=== PATIENT | male | born 2000 | race Two or more races ===

== ENCOUNTER 2020-06-27 08:18 | Emergency (ER) | payer OTHER ==
[~2020-06-27] VITALS: Ht 175.3 cm; Wt 78.3 kg
[2020-06-27 08:47] LABS: BASO % 0 % (0-3); EOS # 0.1 x10^3/uL (0.0-0.7); EOS % 2 % (0-3); HEMOGLOBIN 14.7 g/dL (13.0-17.5); LYMPH # 3.7 x10^3/uL (1.0-4.8); LYMPH % 48 % (24-48); MEAN CORPUSCULAR HEMOGLOBIN 30 pg (25-35); MEAN CORPUSCULAR HGB CONC 34 g/dL (31-37); MEAN CORPUSCULAR VOLUME 87 fL (79-100); MONO # 0.4 x10^3/uL (0.0-1.1); MONO % 5 % (0-9); NEUT # 3.5 x10^3uL (1.8-7.7); NEUT % 45 % (31-73); PLATELET COUNT 237 x10^3/uL (140-400); RED BLOOD COUNT 4.93 x10^6/uL (4.30-5.70); RED CELL DISTRIBUTION WIDTH 13.5 % (11.5-14.5); WHITE BLOOD COUNT 7.8 x10^3/uL (4.0-11.0)
[2020-06-27] MEDS: IV NORMAL SALINE 1,000ML 1,000 ML IV ONE (08:50)
[2020-06-27] MEDS: ONDANSETRON PF 4 MG/2 ML VIAL. IVP ONE (08:51)
--- NOTE | 2020-06-27 08:51 | PHYS DOC ---
Past History Past Medical History: Other Additional Past Medical Histor: polysubstance use Past Surgical History: No Surgical History Additional Smoking Information: 1/2 pack daily Alcohol Use: Heavy Additional Alcohol Information: 1 pint daily Social History Narrative: LSD, mushrooms General Adult EDM: Chief Complaint: DRUG ABUSE HPI: HPI: 19-year-old male presents after drug use. The patient states that he took several different drugs last night and now does not feel well. He wants to make sure he is not dying. He took Percocet, mushrooms, acid, and marijuana.... At least. He has no specific complaints. Denies fever or chills. Review of Systems: Review of Systems: Constitutional: Denies fever or chills Eyes: Denies change in visual acuity HENT: Denies nasal congestion or sore throat Respiratory: Denies cough or shortness of breath Cardiovascular: Denies chest pain or edema GI: Nausea. Denies abdominal pain, vomiting, bloody stools or diarrhea : Denies dysuria Musculoskeletal: Denies back pain or joint pain Integument: Denies rash Neurologic: Denies headache, focal weakness or sensory changes Endocrine: Denies polyuria or polydipsia Lymphatic: Denies swollen glands Psychiatric: Denies depression or anxiety Heart Score: Risk Factors: Risk Factors: DM, Current or recent (<one month) smoker, HTN, HLP, family history of CAD, obesity. Risk Scores: Score 0 - 3: 2.5% MACE over next 6 weeks - Discharge Home Score 4 - 6: 20.3% MACE over next 6 weeks - Admit for Clinical Observation Score 7 - 10: 72.7% MACE over next 6 weeks - Early Invasive Strategies Current Medications: Current Meds: Current Medications Medications (Trade) Dose Ordered Sig/Chris Start Time Stop Time Status Last Admin Dose Admin Ondansetron HCl (Zofran) 4 mg 1X ONCE 06/27/20 08:45 06/27/20 08:46 DC Sodium Chloride 1,000 ml @ 1,000 mls/hr 1X ONCE 06/27/20 08:45 06/27/20 09:44 Allergies: Allergies: Allergies Coded Allergies Type Severity Reaction Last Updated Verified No Known Drug Allergies 06/27/20 No Physical Exam: PE: Constitutional: Well developed, well nourished, no acute distress, non-toxic appearance. [] HENT: Normocephalic, atraumatic, bilateral external ears normal, oropharynx moist, no oral exudates, nose normal. [] Eyes: PERRLA, EOMI, conjunctiva normal, no discharge. [] Neck: Normal range of motion, no tenderness, supple, no stridor. [] Cardiovascular: Heart rate regular rhythm, no murmur [] Lungs & Thorax: Bilateral breath sounds clear to auscultation [] Abdomen: Bowel sounds normal, soft, no tenderness, no masses, no pulsatile masses. [] Skin: Warm, dry, no erythema, no rash. [] Back: No tenderness, no CVA tenderness. [] Extremities: No tenderness, no cyanosis, no clubbing, ROM intact, no edema. [] Neurologic: Alert and oriented X 3, normal motor function, normal sensory function, no focal deficits noted. [] Psychologic: Affect normal, judgement questionable, mood normal. [] Current Patient Data: Vital Signs: Vital Signs Date Time Temp Pulse Resp B/P (MAP) Pulse Ox O2 Delivery O2 Flow Rate FiO2 06/27/20 08:29 98.7 73 20 126/65 (85) 97 Room Air EKG: EKG: [] Radiology/Procedures: Radiology/Procedures: [] Course & Med Decision Making: Course & Med Decision Making Pertinent Labs and Imaging studies reviewed. (See chart for details) The patient's labs are unremarkable. His drug screen is positive for marijuana and alcohol. He states that he is getting anxious and cannot fall asleep and wants to stay in the emergency room. He was informed that the emergency room is not a place to sleep of his hangover. He can go home and do that. He is stable for discharge at this time. [] Dragon Disclaimer: Dragon Disclaimer: This electronic medical record was generated, in whole or in part, using a voice recognition dictation system. Departure Departure: Impression: Primary Impression: Polysubstance abuse Disposition: 01 DC HOME SELF CARE/HOMELESS Condition: STABLE Referrals: THOMAS DANIEL MD (PCP) Patient Instructions: Alcohol and Drug Addiction, Finding Treatment ROSS JONES DO Jun 27, 2020 08:51
[2020-06-27 08:56] LABS: CALCIUM 8.6 mg/dL (8.5-10.1); CREATININE 1.1 mg/dL (0.7-1.3); GFR 84.5; POTASSIUM 3.6 mmol/L (3.5-5.1)
[2020-06-27 09:02] LABS: ALBUMIN 3.9 g/dL (3.4-5.0); TOTAL BILIRUBIN 0.2 mg/dL (0.2-1.0); TOTAL PROTEIN 7.7 g/dL (6.4-8.2)
[2020-06-27 09:19] LABS: AMPHETAMINE/METHAMPHETAMINE NEG (NEG); BARBITURATES NEG (NEG); BENZODIAZEPINES NEG (NEG); CANNABINOIDS POS (NEG); COCAINE NEG (NEG); METHADONE NEG (NEG); OPIATES NEG (NEG); PHENCYCLIDINE NEG (NEG)
[2020-06-27 09:35] LABS: BACTERIA,URINE 0 /HPF (0-FEW); BILIRUBIN,URINE NEG (NEG); CLARITY,URINE CLEAR; COLOR,URINE YELLOW; GLUCOSE,URINE NEG (NEG); NITRITE,URINE NEG (NEG); RBC,URINE RARE /HPF (0-2); SQUAMOUS EPITHELIAL CELL,UR OCC /LPF; UROBILINOGEN,URINE 0.2 mg/dL (0.2 mg/dL); WBC,URINE RARE /HPF (0-4)
[2020-06-27 10:00] VITALS: BP 118/68
== END 2020-06-27 10:10 | disposition home or self-care (01) ==
LOC: ER 08:18
DX: F19.10 Other psychoactive substance abuse, uncomplicated (principal); F17.200 Nicotine dependence, unspecified, uncomplicated; F10.20 Alcohol dependence, uncomplicated; Y90.9 Presence of alcohol in blood, level not specified
CPT/HCPCS: 36415; 80053; 80307; 81001; 85025; 96361; 96374; 99283; J2405; J7030

== ENCOUNTER 2021-02-09 11:21 | Emergency (ER) | payer SELFPAY ==
[~2021-02-09] VITALS: Ht 175.3 cm; Wt 67.1 kg
[2021-02-09 11:36] VITALS: BP 107/61
--- NOTE | 2021-02-09 11:44 | PHYS DOC ---
Past History Past Medical History: Other Additional Past Medical Histor: polysubstance use, suicidal ideation Past Surgical History: No Surgical History Smoking: Cigarettes Alcohol Use: Heavy Drug Use: Benzodiazepine, Marijuana General Adult EDM: Chief Complaint: HAND PROBLEM HPI: HPI: 20-year-old male presents with report of laceration to dorsum of left wrist which occurred 2 days ago. Patient reports history of cutting. Reports was depressed at the time and reports he cut himself secondary to suicidal ideation. Patient currently denies any suicidal ideation and reports had just gone to an appointment with a counselor today regarding these thoughts. Patient reports that EMS was called 2 days ago because his father was "having a heart attack ". Reports EMS got patient into the ambulance but "never looked at his wound ". Patient did not seek further care of his wound at that time. Reports some numbness to his "whole hand ". Patient reports last tetanus booster greater than 5 years ago. Patient reports he was "high "on Xanax when he cut himself. Review of Systems: Review of Systems: Constitutional: Denies fever or chills Eyes: Denies redness or eye pain HENT: Denies nasal congestion or sore throat Respiratory: Denies cough or shortness of breath Cardiovascular: Denies chest pain or palpitations GI: Denies abdominal pain, nausea, or vomiting : Denies dysuria or hematuria Musculoskeletal: Denies back pain; reports pain at site of laceration to left wrist Integument: Denies erythema or swelling; reports laceration to dorsum of left wrist Neurologic: Denies headache or focal weakness; reports numbness to left hand Complete systems were reviewed and found to be within normal limits, except as documented in this note. Current Medications: Current Meds: Current Medications Medications (Trade) Dose Ordered Sig/Chris Start Time Stop Time Status Last Admin Dose Admin Diphtheria/ Pertussis/Tetanus Vacc (ADACEL TDap SYRINGE) 0.5 ml ONCE ONCE 02/09/21 11:45 02/09/21 11:46 Neomycin/ Polymyxin/ Bacitracin (Triple Antibiotic Ointment) 1 pkt 1X ONCE 02/09/21 11:45 02/09/21 11:46 Allergies: Allergies: Allergies Coded Allergies Type Severity Reaction Last Updated Verified No Known Drug Allergies 06/27/20 No Physical Exam: PE: Constitutional: Well developed, well nourished, no acute distress, non-toxic appearance HENT: Normocephalic, atraumatic Eyes: Conjunctiva normal, no discharge Neck: Normal range of motion, supple Lungs & Thorax: No respiratory distress, equal chest rise and fall Skin: Warm, dry, no rash; 4cm healing laceration to dorsum of left wrist, no surrounding erythema, no bleeding, no exudate Extremities: No tenderness, ROM intact to wrist and all fingers, no edema, right radial pulse +2, right finger cap refill less than 2 seconds Neurologic: Alert and oriented X 3, reports numbness to all fingers (both palmar and dorsal aspects), palm, and back of hand Psychologic: Affect normal, judgment normal EKG: EKG: [] Radiology/Procedures: Radiology/Procedures: [] Heart Score: C/O Chest Pain: N/A Course & Med Decision Making: Course & Med Decision Making Patient presents for evaluation of healing laceration. Patient advised would be unable to suture at this time given timing of injury. Patient does report some numbness to both dorsal and palmar aspects of hand and fingers. Symptomology does not appear fully consistent with wound. Patient advised would be unable to further assess. Motor function appears intact. Radial pulse +2. Cap refill l ess than 2 seconds. No active infection noted. Tetanus updated. Wound cleaned and dressed. Patient stable for discharge with outpatient follow-up with PCP. Discussed findings and plan with patient and family, who acknowledge understanding and agreement. Macrina Disclaimer: Macrina Disclaimer: This electronic medical record was generated, in whole or in part, using a voice recognition dictation system. Departure Departure: Impression: Primary Impression: Laceration Additional Impression: Need for tetanus booster Disposition: 01 HOME / SELF CARE / HOMELESS Condition: STABLE Referrals: PCP,NO (PCP) Patient Instructions: Laceration, Old, Not Sutured Additional Instructions: Do not soak your wound. You may shower. Clean wound daily with soap and water. Change dressing 2 times daily. Use over the counter antibiotic ointment with each dressing change. JERONIMO HUMPHREY DO February 09, 2021 11:44
[2021-02-09] MEDS ORDERED: NEOMY/BACITR/POLYMYXIN OINT PACKET. TP ONE (11:45)
[2021-02-09] MEDS ORDERED: DIPH,PERTUSS(ACELL),TET VAC/PF 0.5 ML SYRINGE. VAX IM ONE (11:45)
== END 2021-02-09 12:04 | disposition home or self-care (01) ==
LOC: ER 11:21
DX: S61.512A Laceration without foreign body of left wrist, initial encounter (principal); F17.210 Nicotine dependence, cigarettes, uncomplicated; F10.20 Alcohol dependence, uncomplicated; Y90.9 Presence of alcohol in blood, level not specified; X78.8XXA Intentional self-harm by other sharp object, initial encounter; Y93.89 Activity, other specified; Y92.89 Other specified places as the place of occurrence of the external cause; Y99.8 Other external cause status
CPT/HCPCS: 99282

== ENCOUNTER 2022-01-23 18:12 | Emergency (ER) | payer SELFPAY ==
[2022-01-23] MEDS ORDERED: IV NORMAL SALINE 1,000ML 1,000 ML IV ONE (18:30)
[2022-01-23] MEDS ORDERED: ONDANSETRON PF 4 MG/2 ML VIAL. IVP ONE (18:30)
== END 2022-01-23 18:20 | disposition left against medical advice (07) ==
LOC: ER 18:12
DX: E86.0 Dehydration (principal); R11.2 Nausea with vomiting, unspecified; R19.7 Diarrhea, unspecified; R53.1 Weakness; Z53.21 Procedure and treatment not carried out due to patient leaving prior to being seen by health care provider